=== PATIENT | male | born 1995 | race Caucasian/White ===

== ENCOUNTER 2020-10-10 11:14 | Inpatient (IN) | payer OTHER ==
[~2020-10-10] VITALS: Ht 172.7 cm; Wt 123.8 kg
[2020-10-10] VITALS (7 sets, daily range): BP systolic 127–137; BP diastolic 61–87
[2020-10-10] MEDS ORDERED: CASIRIVIMAB/IMDEVIMAB 10 ML in SODIUM CHLORIDE 0.9% 100 ML IV ONE (11:30)
[2020-10-10] MEDS ORDERED: ACETAMINOPHEN 325 MG TAB PO ONE (11:30)
[2020-10-10] MEDS ORDERED: DEXAMETHASONE SOD PHOS 10 MG/1 ML VIAL IV ONE (12:45)
[2020-10-10] MEDS ORDERED: ONDANSETRON HCL INJ 2MG/ML 2ML 2 MG/ML VIAL IV PRN ×2 (12:45→13:15)
[2020-10-10] MEDS ORDERED: LACTATED RINGER'S 1,000 ML INJ ONE (13:00)
[2020-10-10] MEDS ORDERED: MELATONIN 5 MG TABLET PO PRN (13:15)
[2020-10-10] MEDS ORDERED: DOCUSATE SODIUM 100 MG CAP PO PRN (13:15)
[2020-10-10] MEDS ORDERED: DEXTROSE 50% SYRINGE 50 ML IV PRN (13:15)
[2020-10-10] MEDS ORDERED: HYDRALAZINE HCL 20 MG/ML VIAL IV PRN (13:15)
[2020-10-10] MEDS ORDERED: ACETAMINOPHEN 325 MG TAB PO PRN (13:15)
[2020-10-10] MEDS ORDERED: DIPHENHYDRAMINE HCL 25 MG CAP PO PRN (13:15)
[2020-10-10] MEDS ORDERED: LIDOCAINE 4% PATCH TP PRN (13:15)
[2020-10-10] MEDS ORDERED: POTASSIUM CHLORIDE 20 MEQ TAB CR PO PRN (13:15)
[2020-10-10] MEDS ORDERED: SIMETHICONE 80 MG CHEW PO PRN (13:15)
[2020-10-10] MEDS ORDERED: REMDESIVIR 200MG 200 MG in SODIUM CHLORIDE 0.9% 100 ML 100 ML IV ONE (13:45)
[2020-10-10 14:29] LABS: BASOPHILS % 0.2 % (0.0-1.0); HEMATOCRIT 35.4 % (38.2-49.6); HEMOGLOBIN 10.8 g/dL (14.0-18.0); LYMPHOCYTES # (AUTO) 1.1 (1.0-3.2); LYMPHOCYTES % 17.9 % (18.0-39.1); MEAN CORPUSCULAR HEMOGLOBIN 17.9 pg (28-32); MEAN CORPUSCULAR HGB CONC 30.5 g/dL (31-35); MEAN CORPUSCULAR VOLUME 58.6 fL (81-99); MONOCYTES # (AUTO) 0.3 (0.2-0.8); MONOCYTES % 5.1 % (4.4-11.3); NEUTROPHILS # (AUTO) 4.5 (2.1-6.9); NEUTROPHILS % 76.3 % (38.7-80.0); PLATELET COUNT 180 x10e3/uL (140-360); RED BLOOD COUNT 6.04 x10e6/uL (4.3-5.7); RED CELL DISTRIBUTION WIDTH 16.6 % (11.7-14.4)
[2020-10-10] MEDS: CEFTRIAXONE 1 GM in SODIUM CHLORIDE 0.9% 50ML 50 ML IV SCH (14:42)
[2020-10-10 14:46] LABS: CALCIUM 8.4 mg/dL (8.4-10.2); CREATININE, SERUM 0.77 mg/dL (0.72-1.25)
[2020-10-10] MEDS: ENOXAPARIN SOD INJ 40 MG/0.4 ML SYR SC SCH (17:06)
[2020-10-11] VITALS (9 sets, daily range): BP systolic 110–134; BP diastolic 71–90
[2020-10-11 06:19] LABS: HEMATOCRIT 36.9 % (38.2-49.6); HEMOGLOBIN 11.3 g/dL (14.0-18.0); MEAN CORPUSCULAR HGB CONC 30.6 g/dL (31-35); MEAN CORPUSCULAR VOLUME 58.7 fL (81-99); MONOCYTES # (AUTO) 0.4 (0.2-0.8); MONOCYTES % 8.4 % (4.4-11.3); NEUTROPHILS # (AUTO) 3.6 (2.1-6.9); NEUTROPHILS % 71.4 % (38.7-80.0); PLATELET COUNT 181 x10e3/uL (140-360); RED BLOOD COUNT 6.29 x10e6/uL (4.3-5.7); RED CELL DISTRIBUTION WIDTH 17.6 % (11.7-14.4)
[2020-10-11 06:53] LABS: ANION GAP 17.3 mmol/L (8-16); CALCIUM 8.6 mg/dL (8.4-10.2); CREATININE, SERUM 0.67 mg/dL (0.72-1.25); POTASSIUM 4.3 mmol/L (3.5-5.1)
[2020-10-11] MEDS: PANTOPRAZOLE SOD 40 MG TABEC PO SCH (08:23)
[2020-10-11] MEDS: ASCORBIC ACID 500 MG TAB PO SCH (08:46)
[2020-10-11] MEDS: DEXAMETHASONE SOD PHOS INJ 4 MG/ML VIAL IV SCH (08:46)
[2020-10-11] MEDS: ZINC SULFATE 220 MG CAP PO SCH (08:46)
[2020-10-11] MEDS: CEFTRIAXONE 1 GM in SODIUM CHLORIDE 0.9% 50ML 50 ML IV SCH (08:46)
[2020-10-11] MEDS: BENZONATATE 100 MG CAP PO PRN (09:13)
[2020-10-11] MEDS ORDERED: REMDESIVIR 100MG 100 MG in SODIUM CHLORIDE 0.9% 100 ML 100 ML IV SCH (14:00)
[2020-10-11] MEDS: ENOXAPARIN SOD INJ 40 MG/0.4 ML SYR SC SCH (16:42)
[2020-10-12 01:03] VITALS: BP 121/68
[2020-10-12 05:29] LABS: BASOPHILS % 0.2 % (0.0-1.0); HEMATOCRIT 38.6 % (38.2-49.6); HEMOGLOBIN 11.9 g/dL (14.0-18.0); LYMPHOCYTES # (AUTO) 1.5 (1.0-3.2); LYMPHOCYTES % 25.6 % (18.0-39.1); MEAN CORPUSCULAR HGB CONC 30.8 g/dL (31-35); MEAN CORPUSCULAR VOLUME 58.4 fL (81-99); MONOCYTES # (AUTO) 0.6 (0.2-0.8); MONOCYTES % 10.9 % (4.4-11.3); NEUTROPHILS # (AUTO) 3.6 (2.1-6.9); PLATELET COUNT 230 x10e3/uL (140-360); RED BLOOD COUNT 6.61 x10e6/uL (4.3-5.7); RED CELL DISTRIBUTION WIDTH 17.6 % (11.7-14.4)
[2020-10-12 05:41] VITALS: BP 137/73
[2020-10-12 05:57] LABS: ANION GAP 16.2 mmol/L (8-16); CALCIUM 8.8 mg/dL (8.4-10.2); CREATININE, SERUM 0.71 mg/dL (0.72-1.25); POTASSIUM 4.2 mmol/L (3.5-5.1)
[2020-10-12 08:00] VITALS: BP 128/76
[2020-10-12 08:27] LABS: LYMPHOCYTES % (MANUAL) 20 % (19-48); METAMYELOCYTES % (MANUAL) 2 % (0-0); MONOCYTES % (MANUAL) 6 % (3.4-9.0); MYELOCYTES % (MANUAL) 1 % (0-0); NEUTROPHILS % (MANUAL) 69 % (40-74)
[2020-10-12 08:28] LABS: ANISOCYTOSIS SLIGHT; HYPOCHROMASIA MODERATE; MICROCYTOSIS MODERATE; PLATELET ESTIMATE ADEQUATE; PLATELET MORPHOLOGY COMMENT NORMAL; RBC MORPHOLOGY COMMENT ABNORMAL
[2020-10-12] MEDS: BENZONATATE 100 MG CAP PO PRN (09:17)
[2020-10-12] MEDS: PANTOPRAZOLE SOD 40 MG TABEC PO SCH (09:17)
[2020-10-12] MEDS: CEFTRIAXONE 1 GM in SODIUM CHLORIDE 0.9% 50ML 50 ML IV SCH (09:17)
[2020-10-12] MEDS: ASCORBIC ACID 500 MG TAB PO SCH (09:17)
[2020-10-12] MEDS: DEXAMETHASONE SOD PHOS INJ 4 MG/ML VIAL IV SCH (09:17)
[2020-10-12] MEDS: ZINC SULFATE 220 MG CAP PO SCH (09:17)
== END 2020-10-12 14:28 | disposition home or self-care (01) | DRG 871 ==
LOC: ER 11:25 → ERHOLD 12:43 → IMCU 15:13 → OBSVTOIN 10-11 09:41 → MED/SURG3 10-11 16:55
PROVIDERS: ADMIT Internal Medicine; ATTEND Internal Medicine
PROC: XW033E5 Introduction of Remdesivir Anti-infective into Peripheral Vein, Percutaneous Approach, New Technology Group 5 (ICD-10-PCS; principal; 2020-10-11)
PROC: 8E0ZXY6 Isolation (ICD-10-PCS; 2020-10-11)
DX: A41.89 Other specified sepsis (principal); U07.1 COVID-19; J12.82 Pneumonia due to coronavirus disease 2019; J80 Acute respiratory distress syndrome; Z68.41 Body mass index [BMI] 40.0-44.9, adult; E66.01 Morbid (severe) obesity due to excess calories
CPT/HCPCS: 36415; 71045; 80048; 84484; 85025; 93005; 99284; G0378; J0456; J0696; J1100; J1650; J7050; J7121; U0002